=== PATIENT | female | born 1945 | race Caucasian/White ===

== ENCOUNTER 2017-05-10 11:18 | Emergency (ER) | payer MEDICARE, OTHER ==
[~2017-05-10] VITALS: Ht 157.5 cm; Wt 59.0 kg
[2017-05-10 11:21] VITALS: Ht 157.5 cm; Wt 59.0 kg
[2017-05-10] MEDS ORDERED: SOD CHLORIDE 0.9% 500 ML IV STA (12:09)
[2017-05-10 12:42] LABS: BASOPHILS % 0.5 % (0.0-2.0); EOSINOPHILS # 0.8 10^3/ul (0.0-0.5); EOSINOPHILS % 9.7 % (0.0-7.0); HEMATOCRIT 34.8 % (37.0-47.0); HEMOGLOBIN 12.3 g/dl (12.0-16.0); LYMPHOCYTES % 24.4 % (15.0-51.0); MEAN CORPUSCULAR HEMOGLOBIN 31.1 pg (29.0-33.0); MEAN CORPUSCULAR HGB CONC 35.3 g/dl (32.0-37.0); MEAN CORPUSCULAR VOLUME 87.9 fl (82.0-101.0); MEAN PLATELET VOLUME 10.9 fl (7.4-10.4); MONOCYTE # 0.6 10^3/ul (0.3-0.9); MONOCYTES % 7.5 % (0.0-11.0); NEUTROPHIL # 4.7 10^3/ul (1.6-7.5); NEUTROPHILS % 57.7 % (39.0-77.0); PLATELET COUNT 198 10^3/UL (140-415); RED BLOOD COUNT 3.96 10^6/ul (4.20-5.40); WHITE BLOOD COUNT 8.2 10^3/ul (4.8-10.8)
[2017-05-10 12:51] LABS: ADD UMIC YES; UR ASCORBIC ACID NEGATIVE (NEGATIVE); UR BILIRUBIN (Dip) NEGATIVE (NEGATIVE); UR BLOOD (Dip) NEGATIVE (NEGATIVE); UR CLARITY SLIGHTLY CLOUDY (CLEAR); UR COLOR YELLOW (YELLOW); UR GLUCOSE (Dip) NEGATIVE (NEGATIVE); UR KETONES (Dip) NEGATIVE (NEGATIVE); UR LEUKOCYTE ESTERASE (Dip) 2+ Leu/ul (NEGATIVE); UR MUCUS FEW /HPF (NONE SEEN); UR NITRITE (Dip) NEGATIVE (NEGATIVE); UR RBC 3 /HPF (0-5); UR SPECIFIC GRAVITY (Dip) 1.012 (1.003-1.030); UR SQUAMOUS EPITHELIAL CELL MODERATE /HPF (FEW); UR TOTAL PROTEIN (Dip) 1+ mg/dl (NEGATIVE); UR UROBILINOGEN (Dip) 1+ mg/dL (NEGATIVE)
[2017-05-10] MEDS ORDERED: CEFTRIAXONE 1 GM/50 ML (PMX) 50 ML IVPB ONE (13:00)
[2017-05-10 13:02] LABS: CALCIUM 9.4 mg/dl (8.4-10.2); CREATININE 0.93 mg/dl (0.44-1.00); POTASSIUM 4.6 mmol/L (3.5-5.1)
--- NOTE | 2017-05-10 13:10 | RADRPT ---
PROCEDURE: Chest x-ray CLINICAL INDICATION: Chest pain TECHNIQUE: Chest single view COMPARISON: None FINDINGS: The heart is normal in size. There is mild atherosclerotic aortic calcification. The pulmonary vesse ls are normal in caliber. The lungs are clear. The costophrenic angles are sharp. The visualized bony thorax is unremarkable. IMPRESSION: No acute cardiopulmonary disease. Mild atherosclerotic aortic calcification RPTAT: HH .Tommy Camara MD, MD Date Time Electronically viewed and signed by .Tommy Camara MD, MD on 05/10/2017 13:10 .W/
[2017-05-10 13:14] LABS: TROPONIN-I 0.015 ng/ml (0.00-0.12)
--- NOTE | 2017-05-10 13:28 | ERD ---
ER Documentation Chief Complaint Chief Complaint Complains of dizziness x 1 week Hx of Vertigo HPI This is a 71-year-old female who presents to the emergency room for evaluation of dizziness. The patient describes her dizziness as a lightheaded sensation and states that is been present for approximately 7 months duration. She does state that is worse with rapid change in position and she denies any nausea, vomiting, chest pain or shortness of breath associated with this dizziness and the patient states that the reason she came to the emergency room days because her sister told her to come get it checked out. The patient denies any worsening dizziness as compared to her normal baseline for the past 7 months. She has not seen a neurologist or been evaluated for this dizziness. ROS All systems reviewed and are negative except as per history of present illness. Allergies Allergies: Coded Allergies: No Known Allergy (Unverified , 05/10/17) PMhx/Soc History of Surgery: No Anesthesia Reaction: No Hx Neurological Disorder: Yes (VERTIGO) Hx Respiratory Disorders: No Hx Cardiac Disorders: No Hx Psychiatric Problems: No Hx Miscellaneous Medical Probl: No Hx Alcohol Use: No Hx Substance Use: No Hx Tobacco Use: No Smoking Status: Never smoker Physical Exam Vitals Vital Signs Date Time Temp Pulse Resp B/P Pulse Ox O2 Delivery O2 Flow Rate FiO2 05/10/17 11:21 98.9 95 20 125/76 98 Physical Exam INITIAL VITAL SIGNS: Reviewed by me GENERAL: The patient is well developed and appropriate for usual state of health in no apparent distress HEENT: Dry mucous membranes, pupils equal, round, and reactive to light. EOMI. There is no scleral icterus. NECK: C-spine is soft and supple, there is no meningismus. There is no cervical lymphadenopathy. LUNGS: Clear to auscultation bilaterally. There are no rales, wheezes or rhonchi. HEART: Regular rate and rhythm, no murmurs, clicks, rubs or gallops. ABDOMEN: Soft, non-tender, non-distended. There are bowel sounds in all four quadrants. No rebound or guarding. EXTREMITIES: There is no peripheral cyanosis or edema. No focal swelling or erythema. NEUROLOGICAL: The patient moves all four extremities with 5/5 strength. Cranial nerves II - XII are intact. Normal gait. Alert and oriented SKIN: There is no apparent rash or petechiae. HEME/LYMPHATIC: There is no evidence of excessive bruising or lymphedema. PSYCHIATRIC: The patient does not appear anxious or depressed. Result Diagram: 05/10/17 1225 05/10/17 1225 Results 24 hrs Laboratory Tests Test 05/10/17 12:20 05/10/17 12:25 Urine Color YELLOW Urine Clarity SLIGHTLY CLOUDY Urine pH 6.0 Urine Specific [place] 1.012 Urine Ketones NEGATIVEmg/dL Urine Nitrite NEGATIVEmg/dL Urine Bilirubin NEGATIVEmg/dL Urine Urobilinogen 1+mg/dL Urine Leukocyte Esterase 2+Annalisa/ul Urine Microscopic RBC 3/HPF Urine Microscopic WBC 13/HPF Urine Squamous Epithelial Cells MODERATE/HPF Urine Mucus FEW/HPF Urine Hemoglobin NEGATIVEmg/dL Urine Glucose NEGATIVEmg/dL Urine Total Protein 1+mg/dl White Blood Count 8.210^3/ul Red Blood Count 3.9610^6/ul Hemoglobin 12.3g/dl Hematocrit 34.8% Mean Corpuscular Volume 87.9fl Mean Corpuscular Hemoglobin 31.1pg Mean Corpuscular Hemoglobin Concent 35.3g/dl Red Cell Distribution Width 13.0% Platelet Count 67794^3/UL Mean Platelet Volume 10.9fl Neutrophils % 57.7% Lymphocytes % 24.4% Monocytes % 7.5% Eosinophils % 9.7% Basophils % 0.5% Nucleated Red Blood Cells % 0.0/100WBC Neutrophils # 4.710^3/ul Lymphocytes # 2.010^3/ul Monocytes # 0.610^3/ul Eosinophils # 0.810^3/ul Basophils # 0.010^3/ul Nucleated Red Blood Cells # 0.010^3/ul Sodium Level 143mmol/L Potassium Level 4.6mmol/L Chloride Level 106mmol/L Carbon Dioxide Level 24mmol/L Anion Gap 18 Blood Urea Nitrogen 14mg/dl Creatinine 0.93mg/dl Glucose Level 174mg/dl Calcium Level 9.4mg/dl Troponin I 0.015ng/ml Current Medications Medications (Trade) Dose Ordered Sig/Quique Route PRN Reason Start Time Stop Time Status Last Admin Dose Admin Sodium Chloride 500 ml @ 500 mls/hr Q1H STAT IV 05/10/17 12:09 05/10/17 13:08 DC 05/10/17 12:27 Ceftriaxone Sodium (Rocephin) 50 ml @ 100 mls/hr ONCE ONCE IVPB 05/10/17 13:00 05/10/17 13:29 05/10/17 13:06 Procedures/MDM EKG: #1 Rate/Rhythm: [Normal Sinus Rhythm] QRS, ST, T-waves: [No changes consistent w/ acute ischemia] Impression: [No evidence of ischemia or arrhythmia] EKG: #2 Rate/Rhythm: [Normal Sinus Rhythm] QRS, ST, T-waves: [No changes consistent w/ acute ischemia] Impression: [No evidence of ischemia or arrhythmia] Chest X-ray 1V Interpreted by me: Soft Tissue: No acute abnormalities Bones: No acute abnormalities Mediastinum/Cardiac Silhouette/Lungs: [No acute abnormalities] This 71-year-old female presents to the ER for evaluation of dizziness which she described as a lightheaded sensation. This patient was hemodynamically stable and nontoxic appearing on my examination. She did have dry mucous membranes I did obtain a cardiac workup on this patient. This patient had 2 EKGs which were nonischemic and showed no evolution of any ST changes. Her chest x-ray is clear, troponin is negative. This patient underwent a urinalysis and also was found to have urinary tract infection. The patient was given 1 g Rocephin in the emergency room. IV doubt this patient is suffering from ACS. She has had dizziness for 7 months, I told her that her urinary tract infection could be contributing to this. The patient will be discharged at this time with a prescription for ciprofloxacin to take over the course of the next 7 days. The patient was advised she can return to the ER any point for reevaluation and she verbalized understanding. Departure Diagnosis: Primary Impression: Dizziness Additional Impression: Acute cystitis Condition: Stable LAYA JOHNSON DO May 10, 2017 13:28
[2017-05-10] MEDS ORDERED: NITR-58 PO (13:29)
[2017-05-10 13:46] VITALS: BP 147/92; PULSE 91; RESP 18
== END 2017-05-10 13:54 | disposition home or self-care (01) ==
LOC: E/R 11:18
DX: N30.00 Acute cystitis without hematuria (principal)
CPT/HCPCS: 36415; 71010; 80048; 81001; 84484; 85025; 96374; 99285; J0696; J7040; 93005

== ENCOUNTER 2018-01-04 13:16 | Emergency (ER) | END 2018-01-04 17:02 | disposition home or self-care (01) ==

== ENCOUNTER 2018-02-06 12:22 | Emergency (ER) | END 2018-02-06 15:47 | disposition home or self-care (01) ==

== ENCOUNTER 2018-05-07 13:15 | Emergency (ER) | END 2018-05-07 15:34 | disposition home or self-care (01) ==

== ENCOUNTER 2018-06-21 10:00 | Emergency (ER) | END 2018-06-21 12:13 | disposition home or self-care (01) ==

== ENCOUNTER 2018-09-13 16:38 | Emergency (ER) | payer MEDICARE, OTHER ==
[~2018-09-13] VITALS: Wt 58.3 kg
[~2018-09-13 16:38] MED LIST: HC30CR25 TOP
[2018-09-13] MEDS ORDERED: SOD CHLORIDE 0.9% 1,000 ML IV STA (17:41)
[2018-09-13] MEDS ORDERED: NICARDipine HCL 30 MG CAPSULE PO ONE ×2 (18:00→20:30)
--- NOTE | 2018-09-13 18:17 | ERD ---
ER Documentation Chief Complaint Chief Complaint DIZZINESS WITH HEADACHE X 1 MONTH HPI This is 73-year-old female who is here for dizziness. The patient has chronic dizziness but states that lately is getting worse. She says she feels some lightheadedness with headaches over the past month. No falls or vertigo. No chest pain or shortness of breath. She says she gets blurry vision at times and feels that her blood pressure is getting high. She says she is taking her medication as usual. No focal neurological complaints of speech change swallowing difficulty numbness or weakness in the extremities ROS All systems reviewed and are negative except as per history of present illness. Medications Home Meds Active Scripts Amlodipine Besylate* (Norvasc*) 10 Mg Tablet, 10 MG PO DAILY, #30 TAB 1 Refill Prov:ILEANA FORTE DO 09/13/18 Hydrocortisone* Topical (Hydrocortisone* Topical) 2.5%-28.3 Gm Cream..g., 1 APPLIC TOP BID, #1 TUB Prov:PAULY MONTES MD 06/21/18 Allergies Allergies: Coded Allergies: No Known Allergy (Unverified , 06/21/18) PMhx/Soc History of Surgery: No Anesthesia Reaction: No Hx Neurological Disorder: Yes (VERTIGO) Hx Respiratory Disorders: No Hx Cardiac Disorders: No Hx Psychiatric Problems: No Hx Miscellaneous Medical Probl: No Hx Alcohol Use: No Hx Substance Use: No Hx Tobacco Use: No Smoking Status: Never smoker FmHx Family History: No coronary disease Physical Exam Vitals Vital Signs Date Temp Pulse Resp B/P (MAP) Pulse Ox O2 O2 Flow FiO2 Time Delivery Rate 09/13/18 98.3 80 18 164/79 99 Room Air 20:20 (107) 09/13/18 98.3 84 16 175/93 99 Room Air 18:14 (120) 09/13/18 98.3 87 18 198/91 99 16:40 (126) Physical Exam Const: Well-developed, well-nourished Head: Atraumatic, normocephalic Eyes: Normal Conjunctiva, PERRLA, EOMI, normal sclera, no nystagmus ENT: Normal External Ears, Nose and Mouth, moist mucus membranes. Neck: Full range of motion. No meningismus, no lymphadenopathy. Resp: Clear to auscultation bilaterally, no wheezing, rhonchi, rales Cardio: Regular rate and rhythm, no murmurs, S1 S2 present Abd: Soft, non tender x 4, non distended. Normal bowel sounds, no guarding or rebound, no pulsitile abdominal masses or bruits Skin: No petechiae or rashes, no ecchymosis , no maculopapular rash Back: No midline or flank tenderness Ext: No cyanosis, or edema, FROM x 4, normal inspection, neurovascularly intact x 4 Neur: Awake and alert, STR 5/5 x 4, sensation intact x 4, no focal findings, cerebellum intact Psych: Normal Mood and Affect Result Diagram: 09/13/18175509/13/181755 Results 24 hrs Laboratory Tests Test 09/13/18 17:56 White Blood Count 7.7 10^3/ul Red Blood Count 3.51 10^6/ul Hemoglobin 10.7 g/dl Hematocrit 31.3 % Mean Corpuscular Volume 89.2 fl Mean Corpuscular Hemoglobin 30.5 pg Mean Corpuscular Hemoglobin Concent 34.2 g/dl Red Cell Distribution Width 12.9 % Platelet Count 189 10^3/UL Mean Platelet Volume 10.7 fl Immature Granulocytes % 0.300 % Neutrophils % % Segmented Neutrophils % (Manual) 48 % Band Neutrophils % (Manual) 1 % Lymphocytes % % Lymphocytes % (Manual) 24 % Reactive Lymphocytes % (Manual) 3 % Monocytes % % Monocytes % (Manual) 7 % Eosinophils % % Eosinophils % (Manual) 15 % Basophils % % Basophils % (Manual) 2 % Nucleated Red Blood Cells % 0.0 /100WBC Immature Granulocytes # 0.020 10^3/ul Neutrophils # 10^3/ul Neutrophils # (Manual) 3.7 10^3/ul Band Neutrophils # 0.0 10^3/ul Lymphocytes (Manual) 1.8 10^3/ul Lymphocytes # 10^3/ul Reactive Lymphocytes # 0.2 10^3/ul Monocytes # 10^3/ul Monocytes # (Manual) 0.5 10^3/ul Eosinophils # 10^3/ul Basophils # 10^3/ul Basophils # (Manual) 0.1 10^3/ul Nucleated Red Blood Cells # 10^3/ul Platelet Estimate NORMAL Polychromasia 1+ Anisocytosis 1+ Sodium Level 136 mmol/L Potassium Level 4.4 mmol/L Chloride Level 104 mmol/L Carbon Dioxide Level 25 mmol/L Anion Gap 7 Blood Urea Nitrogen 19 mg/dl Creatinine 0.98 mg/dl Est Glomerular Filtrat Rate mL/min mL/min Glucose Level 136 mg/dl Calcium Level 9.3 mg/dl Total Bilirubin 0.3 mg/dl Direct Bilirubin 0.00 mg/dl Indirect Bilirubin 0.3 mg/dl Aspartate Amino Transf (AST/SGOT) 28 IU/L Alanine Aminotransferase (ALT/SGPT) 21 IU/L Alkaline Phosphatase 78 IU/L Troponin I < 0.012 ng/ml Total Protein 7.2 g/dl Albumin 4.0 g/dl Globulin 3.20 g/dl Albumin/Globulin Ratio 1.25 Current Medications Medications Dose Sig/Quique Start Time Status Last (Trade) Ordered Route PRN Stop Time Admin Dose Reason Admin Sodium 1,000 ml @ Q1H STAT 09/13/18 DC 09/13/18 Chloride 1,000 mls/hr IV 17:41 18:04 09/13/18 18:40 Nicardipine 30 mg ONCE ONCE 09/13/18 DC 09/13/18 HCl PO 18:00 18:02 (Cardene) 09/13/18 18:01 Nicardipine 30 mg ONCE ONCE 09/13/18 HCl PO 20:30 (Cardene) 09/13/18 20:31 Procedures/MDM EKG: Rate/Rhythm: Normal Sinus Rhythm,NL intervals QRS, ST, QT: NORMAL HI, QRS, QT] Impression: NORMAL EKG Ordering MD: ILEANA FORTE DO Location: E/R Room/Bed: PROCEDURE: CT Head Without Intravenous Contrast CLINICAL INDICATION: Dizziness. TECHNIQUE: Axial computed tomography images of the head/brain without intravenous contrast. Sagittal and coronal reformatted images were created and reviewed. CTDIvol (mGy) = 38.84; total DLP (mGy-cm) = 634.23. This CT exam was performed using one or more of the following dose reduction techniques: automated exposure control, adjustment of the mA and/or kV according to patient size, and/or use of iterative reconstruction technique. DICOM images are available. COMPARISON: 02/06/2018. 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 No hemorrhage. No acute infarct. VENTRICLES: Unremarkable. No ventriculomegaly. BONES/JOINTS: Unremarkable. No acute fracture. SOFT TISSUES: Unremarkable. SINUSES: Unremarkable as visualized. No acute sinusitis. MASTOID AIR CELLS: Unremarkable as visualized. No mastoid effusion. IMPRESSION: 1. Chronic intracranial changes are present, as above. 2. No acute intracranial abnormality demonstrated. 3. There is no significant interval change from the previous study. RPTAT: [facility] Jesika Suarez, Physician Educational Director Date Time Electronically viewed and signed by Jesika Suarez Physician Educational Director on 09/13/2018 18:21 RmC/ CC: ILEANA FORTE DO [id number] Patient was given Cardene her blood pressure is now much lower. Patient says her symptoms went away as her blood pressure dropped. The patient is not on any blood pressure medication at all. I feel her dizziness is from hypertension. Brain CAT scan does not show any acute pathology. Will discharge home with prescription for Norvasc 10 mg daily Departure Diagnosis: Primary Impression: Hypertension Hypertension type: essential hypertension Qualified Codes: I10 - Essential (primary) hypertension Additional Impression: Dizziness Condition: Stable ILEANA FORTE DO Sep 13, 2018 18:17
[2018-09-13] MEDS ORDERED: AMLO-218 PO (20:21)
[2018-09-13 20:36] VITALS: BP 149/84; PULSE 82; RESP 18
== END 2018-09-13 20:40 | disposition home or self-care (01) ==
LOC: E/R 16:38
DX: I10 Essential (primary) hypertension (principal)
CPT/HCPCS: 36415; 70450; 80053; 84484; 85025; 93005; 99285; J7030

== ENCOUNTER 2018-10-08 10:16 | Emergency (ER) | payer MEDICARE, OTHER ==
[~2018-10-08] VITALS: Ht 160 cm; Wt 57.9 kg
[~2018-10-08 10:16] MED LIST changes: +AMLO-218 PO
[2018-10-08 10:21] VITALS: Ht 160 cm; Wt 57.9 kg
[2018-10-08] MEDS ORDERED: SOD CHLORIDE 0.9% 500 ML IV STA (11:38)
[2018-10-08] MEDS ORDERED: PRED5DRO20 BOTH EYES (14:31)
[2018-10-08] MEDS ORDERED: AMLO-147 PO (14:31)
--- NOTE | 2018-10-08 14:59 | ERD ---
ER Documentation Chief Complaint Chief Complaint dizziness x this am HPI 73-year-old female presents to the emergency department complaining of dizziness. Patient states that she has a sense of lightheadedness. She has no associated chest pain or palpitations, fevers or chills, headache or other symptoms. She does not feel like she is going to pass out and has not passed out. She reports no seizure activity. She has no other symptoms associated with the dizziness including no visual acuity changes or other neurologic symptoms. ROS All systems reviewed and are negative except as per history of present illness. Medications Home Meds Reported Medications Amlodipine Besylate* (Amlodipine Besylate*) 10 Mg Tablet, 10 MG PO DAILY, #30 TAB 10/08/18 Prednisolone Acetate* (Pred Forte*) 5 Ml Susp, 1 DROP BOTH EYES QID, EA 10/08/18 Discontinued Scripts Amlodipine Besylate* (Norvasc*) 10 Mg Tablet, 10 MG PO DAILY, #30 TAB 1 Refill Prov:ILEANA FORTE DO 09/13/18 Hydrocortisone* Topical (Hydrocortisone* Topical) 2.5%-28.3 Gm Cream..g., 1 APPLIC TOP BID, #1 TUB Prov:PAULY MONTES MD 06/21/18 Allergies Allergies: Coded Allergies: No Known Allergy (Unverified , 10/08/18) PMhx/Soc History of Surgery: No Anesthesia Reaction: No Hx Neurological Disorder: Yes (VERTIGO) Hx Respiratory Disorders: No Hx Cardiac Disorders: No Hx Psychiatric Problems: No Hx Miscellaneous Medical Probl: No Hx Alcohol Use: No Hx Substance Use: No Hx Tobacco Use: No Smoking Status: Never smoker FmHx Noncontributory with supportive family at the bedside. Physical Exam Vitals Vital Signs Date Temp Pulse Resp B/P (MAP) Pulse Ox O2 O2 Flow FiO2 Time Delivery Rate 10/08/18 85 18 146/68 100 Room Air 14:04 (94) 10/08/18 98.3 88 18 149/78 99 10:21 (101) Physical Exam GENERAL: The patient is well developed and appropriate for usual state of health in no apparent distress HEENT: Pupils equal, round, and reactive to light. EOMI. There is no scleral icterus. NECK: C-spine is soft and supple, there is no meningismus. There is no cervical lymphadenopathy. LUNGS: Clear to auscultation bilaterally. There are no rales, wheezes or rhonchi. HEART: Regular rate and rhythm, no murmurs, clicks, rubs or gallops. ABDOMEN: Soft, non-tender, non-distended. There are bowel sounds in all four quadrants. No rebound or guarding. EXTREMITIES: There is no peripheral cyanosis or edema. No focal swelling or erythema. NEURO: The patient moves all four extremities with 5/5 strength. Cranial nerves II - XII are intact. Normal gait. Alert and oriented SKIN: There is no apparent rash or petechiae. HEME/LYMPHATIC: There is no evidence of excessive bruising or lymphedema. PSYCHIATRIC: The patient does not appear anxious or depressed. Result Diagram: 10/08/18 1207 10/08/18 1207 Results 24 hrs Laboratory Tests Test 10/08/18 12:07 White Blood Count 9.4 10^3/ul Red Blood Count 3.65 10^6/ul Hemoglobin 11.1 g/dl Hematocrit 32.7 % Mean Corpuscular Volume 89.6 fl Mean Corpuscular Hemoglobin 30.4 pg Mean Corpuscular Hemoglobin Concent 33.9 g/dl Red Cell Distribution Width 13.3 % Platelet Count 194 10^3/UL Mean Platelet Volume 10.4 fl Immature Granulocytes % 0.300 % Neutrophils % 53.6 % Lymphocytes % 22.2 % Monocytes % 7.9 % Eosinophils % 15.6 % Basophils % 0.4 % Nucleated Red Blood Cells % 0.0 /100WBC Immature Granulocytes # 0.030 10^3/ul Neutrophils # 5.0 10^3/ul Lymphocytes # 2.1 10^3/ul Monocytes # 0.7 10^3/ul Eosinophils # 1.5 10^3/ul Basophils # 0.0 10^3/ul Nucleated Red Blood Cells # 0.0 10^3/ul Urine Color YELLOW Urine Clarity SLIGHTLY CLOUDY Urine pH 5.0 Urine Specific [place] 1.017 Urine Ketones TRACE mg/dL Urine Nitrite NEGATIVE mg/dL Urine Bilirubin NEGATIVE mg/dL Urine Urobilinogen 1+ mg/dL Urine Leukocyte Esterase TRACE Annalisa/ul Urine Microscopic RBC 4 /HPF Urine Microscopic WBC 7 /HPF Urine Squamous Epithelial Cells FEW /HPF Urine Mucus FEW /HPF Urine Hemoglobin NEGATIVE mg/dL Urine Glucose NEGATIVE mg/dL Urine Total Protein 1+ mg/dl Sodium Level 142 mmol/L Potassium Level 4.3 mmol/L Chloride Level 107 mmol/L Carbon Dioxide Level 25 mmol/L Anion Gap 10 Blood Urea Nitrogen 13 mg/dl Creatinine 0.88 mg/dl Est Glomerular Filtrat Rate mL/min mL/min Glucose Level 161 mg/dl Calcium Level 9.7 mg/dl Troponin I < 0.012 ng/ml Current Medications Medications Dose Sig/Quique Start Time Status Last (Trade) Ordered Route PRN Stop Time Admin Dose Reason Admin Sodium 500 ml @ Q1H STAT 10/08/18 DC 10/08/18 Chloride 500 mls/hr IV 11:38 11:56 10/08/18 12:37 Procedures/MDM Patient was taken to a room, seen and evaluated. Comfort measures were initiated. Diagnostic tests were ordered and reviewed. 3 LEAD RHYTHM STRIP: Normal sinus rhythm without ectopy EK lead EKG reviewed by myself: Normal Sinus Rhythm Normal [place] and intervals No ST elevation, depression, or T wave inversion Impression: Normal EKG RADIOLOGY: Reviewed with the radiologist REEVALUATION: 1455: Diagnostic tests were appreciated and discussed with the patient and her family. She was reevaluated and felt well and remained neurologically normal and hemodynamically stable. Her diagnostic tests indicated no high risk causes of her dizziness. Patient seems neurologically normal and felt comfortable being discharged. MEDICAL DECISION MAKIN-year-old female presents the emergency department with dizziness sent with a normal neurologic exam. At this time, the patient's been evaluated for multiple causes of her dizziness but shows no evidence of anemia, electrolyte concerns, cardiac ischemia, infection or other high-risk issues. She states she feels well in the emergency department after observation and seems appropriate for outpatient supportive care with follow-up with her doctor. Departure Diagnosis: Primary Impression: Dizziness Condition: Stable Patient Instructions: Dizziness, Unk Cause Additional Instructions: See your doctor for follow-up as discussed. Take a copy of your test results, if appropriate, to this follow-up visit. See your doctor or return here if your symptoms do not improve as expected. At any time, please return to the emergency department for any change or worsening in her symptoms. KARUNA ROGERS Oct 08, 2018 14:59
[2018-10-08 15:15] VITALS: BP 153/72; PULSE 86; RESP 19
== END 2018-10-08 15:28 | disposition home or self-care (01) ==
LOC: E/R 10:16
DX: R42 Dizziness and giddiness (principal)
CPT/HCPCS: 70450; 71045; 80048; 81001; 84484; 85025; 93005; 99285; J7040

== ENCOUNTER 2019-04-07 13:22 | Emergency (ER) | payer MEDICARE, OTHER ==
[~2019-04-07] VITALS: Ht 160 cm; Wt 57.8 kg
[~2019-04-07 13:22] MED LIST changes: +AMLO-147 PO; -AMLO-218 PO; -HC30CR25 TOP; +IVER3TAB2 PO; +NPH10OT RIGHT EAR; +NYST15CR36 TOP; +PERM1LIQ MC; +PRED5DRO20 BOTH EYES; +SPIN120S3 TP
[2019-04-07 13:24] VITALS: BP 176/79; PULSE 87; RESP 20; Ht 160 cm; Wt 57.8 kg
== END 2019-04-07 16:45 | disposition home or self-care (01) ==
LOC: E/R 13:22
DX: L30.9 Dermatitis, unspecified (principal); I10 Essential (primary) hypertension
CPT/HCPCS: 99283